=== PATIENT | female | born 1950 | race Hispanic/Latino ===

== ENCOUNTER 2017-02-16 05:33 | Day surgery (SDC) | payer MEDICARE, MEDICAID ==
[~2017-02-16] VITALS: Ht 148.6 cm; Wt 68.7 kg
[2017-02-16] VITALS (11 sets, daily range): BP systolic 117–138; BP diastolic 48–72; PULSE 46–68; RESP 10–23; O2SAT 88–95
[~2017-02-16 05:33] MED LIST: ALEN70TA2 PO; AMLO10TA3 PO; ASPI-973 PO; CALC-78 PO; CHOL100045 PO; DICL100G8 TOPICAL; GLUC100016 PO; MELO-259 PO
[2017-02-16] MEDS ORDERED: Ketamine 10 mg/mL 20 mL Inj ONE (05:34)
[2017-02-16] MEDS ORDERED: fentaNYL-PF 50 mCg/mL 2 mL Inj ONE (05:34)
[2017-02-16] MEDS ORDERED: Dexamethasone 4 mg/mL Inj ONE (05:34)
[2017-02-16] MEDS ORDERED: Propofol 10,000 mCg/mL 20 mL Inj ONE (05:34)
[2017-02-16] MEDS ORDERED: Ondansetron 2 mg/mL 2 mL Inj ONE (05:34)
[2017-02-16] MEDS: Lactated Ringer's 1,000 ML IV SCH ×3 (05:42→08:04)
[2017-02-16] MEDS: CeFAZolin Inj 2 GM in IV Premix 1 EACH IV ONE ×2 (07:26→07:33)
[2017-02-16] MEDS ORDERED: MetoCLOpramide 5 mg/mL 2 mL Inj IVPUSH PRN (07:40)
[2017-02-16] MEDS ORDERED: Lactated Ringer's 500 ML IV PRN (07:40)
[2017-02-16] MEDS ORDERED: Phenylephrine 10,000 mCg/mL Inj IVPUSH PRN (07:40)
[2017-02-16] MEDS ORDERED: EPHEDrine Sulfate 50 mg/mL Inj IVPUSH PRN (07:40)
[2017-02-16] MEDS ORDERED: Lactated Ringer's 1,000 ML IV SCH (07:40)
[2017-02-16] MEDS ORDERED: Ondansetron 2 mg/mL 2 mL Inj IVPUSH PRN (07:40)
[2017-02-16] MEDS ORDERED: Dexamethasone 4 mg/mL Inj IVPUSH PRN (07:40)
[2017-02-16] MEDS ORDERED: fentaNYL-PF 50 mCg/mL 2 mL Inj IVPUSH PRN (07:40)
[2017-02-16] MEDS ORDERED: HYDROmorphone 1 mg/mL Inj IVPUSH PRN (07:40)
--- NOTE | 2017-02-16 07:40 | PCM.HPANE ---
Patient Data Surgeon Admitting Provider: Attending Provider:Barrett Álvarez MD Primary Care Physician:Donna Crenshaw Other Provider:Patricia Casillas Anesthesia Reason for Visit Right Neck Mass Ht/WT & BMI Height (Feet): 4 Height (Inches): 10.50 Weight (Kilograms): 68.7 Body Mass Index 30.00 Allergies Coded Allergies: ALEXY Inhibitors (Verified Adverse Reaction, Severe, COUGH, 02/14/17) Past Anesthesia History Anesthesia History: Denies:: Abnormal Airway, Anesthesia Reactions, Difficult Intubation, Malignant Hyperthermia Diabetes History Hx Diabetes?: No MRSA MRSA: No Medications Blood Thinner: Aspirin Hypertension Medication: Yes (AMLODIPINE) Home Meds Incl Beta Baylee: No Reported Medications Diclofenac Gel (Voltaren Gel)100 Gm Tube1 Applic TOPICAL QID #1 TUBE 02/14/17 Cholecalciferol (Vitamin D3) (Vitamin D)1,000 Unit Capsule1,000 Unit PO DAILY # 1 BOTTLE Ref 0 02/14/17 Meloxicam 7.5 Mg Tablet7.5 Mg PO DAILY 30 Days Ref 0 02/14/17 Glucosamine Sulfate 2Kcl (Glucosamine)1,000 Mg [id number] Mg PO DAILY 02/14/17 Calcium Carbonate/Vitamin D3 (Calcium 500 + Vit D Caplet)1 Each Tablet1 Each PO BID 02/14/17 Aspirin 81 Mg [id number] Mg PO DAILY Ref 0 02/14/17 Amlodipine 10 Mg [id number] Mg PO DAILY Ref 0 02/14/17 Alendronate Sodium (Fosamax)70 Mg [id number] Mg PO WEEKLY 30 Days Ref 0 02/14/17 History History of ENT Problems?: No HEENT History: Denies:: Abnormal Airway Difficult Intubation Hx of Heart Problems?: Yes Cardiovascular History: Positive for:: Chest Pain (02/2013 [facility] WNL) Hypertension Denies:: Heart Murmur Irregular Heartbeat (C/OF PALPITATIONS 2010 HOLTER-RARE PVC'S, FREQ. PAC'S) Other Cardiac History: HX ANEMIA Hx of Respiratory Problem?: Yes Respiratory History: Denies:: Use of C-PAP Machine (SNORES) Hx Neurologic Problems?: No Hx of GI Problems?: Yes Gastrointestinal History: Positive for:: Gall Bladder Disease (S/P HUI) Hx of Problems?: No Female Hx: Denies:: Currently (S/P BTL HX MISSED AB X2) Skin History: Denies:: History Skin Disorders? Pressure Ulcers Hx Musculoskeletal Problems?: Yes Musculoskeletal History: Denies:: Osteoarthritis (OSTEOPOROSIS) Hx of Psycho/Social Problems?: No Hx Surgeries?: Yes (HUI,BTL,GUICHO/BSO) Hx Any Other Health Problems?: Yes Other History: Positive for:: Hospitalization (CHILDBIRTH) Denies:: Cancer Endocrine Disease Thyroid Disease Hx Diabetes: No Hx Alcohol Use: Yes (OCCAS)Have You Smoked inLast 12 mo: No Stop/Bang Treated for Sleep Apnea?: Yes Do You Have a CPAP Machine?: Yes S-Snoring: Do You Snore Loudly: Yes T-Tired: feel tired, fatigued: No O-Obsered: Observed not breath: No P-Blood Pressure: treated: Yes B- Body Mass Index > 35 kg/m2: No A- Age over 50: Yes N- Neck Large Circumference: No G- Gender Male: No ILAN Total Score: 3 Risk Assessment Category Category 1A: Patient has history of documented sleep apnea, and HAS NOT received any narcotic, sedative or anesthesia administration during this stay. Category 1B: Patient has history of documented sleep apnea, and HAS received any narcotic , sedative or anesthesia administration during this stay Category 2: Patient has SUSPECTED Obstructive Sleep Apnea, and HAS received any narcotic , sedative or anesthesia administration during this stay. Category 3: Patient has SUSPECTED Obstructive Sleep Apnea and HAS NOT received narcotic, sedative or anesthesia administration during this stay. Category 4: Outpatient in Procedural Areas with known sleep apnea or who screen positive for High Risk via the STOP/BANG questionnaire. Exam Exam Vital Signs Vital Signs Date Time Temp Pulse Resp B/P Pulse Ox O2 Delivery O2 Flow Rate FiO2 02/16/17 06:18 36.4 68 18 130/58 94 Room Air General Appearance: Alert, Oriented X3, Cooperative, No Acute Distress HEENT/AIRWAY: MP 2 Lungs: Clear to Auscultation, Normal Air Movement Heart: Exam Unremarkable, Regular Rate/Rhythm, No Murmurs/Rubs/Gallops Meds/Labs/Diagnostics Admission Meds Current Medications Cefazolin Sodium/ Dextrose 2 gm/ Premix 50 ml @ 100 mls/hr ONCE ONCE IV Last administered on 02/16/17t 07:33; Start 02/16/17 at 06:00; Stop 02/16/17 at 06:29 ; Status DC Lactated Ringer's (Lr) 1,000 ml @ 120 mls/hr Q8H20M IV Last administered on 07:33; Start 02/16/17 at 05:00; Stop 02/16/17 at 13:19 Plan Impression Patient chart reviewed, patient interviewed and anesthestic plan with risks, benefits, and alternatives discussed, and informed consent obtained. NPO Status: 930pm ASA Physical Status: ASA1 Normal Healthy Anesthetic Plan: GA Bene/Risks/Altern/Consents: Yes HP Complete Prior to Induction: Yes Michael Ragland MD Feb 16, 2017 07:40
[2017-02-16] MEDS ORDERED: Bupivacaine 0.5%/EPI 50 mL Inj INFILTRATE ONE (07:47)
[2017-02-16] MEDS ORDERED: HYDROcodone-APAP 5-325 mg Tablet PO PRN (08:15)
--- NOTE | 2017-02-16 08:17 | PCM.DISURG ---
Surgical Discharge Instruction Date of Service Feb 16, 2017 Dates of Hospitalization Date of Hospital Admission Providers Admitting Physician: Primary Care Physician: Donna Crenshaw Attending Physician: Barrett Álvarez MD Discharge Diagnosis Discharge Diagnosis Right neck lipoma Diet Discharge Diet: No restrictions Activity Discharge Activity-General: No restrictions Dressing and Incisional Care Dressing Instructions: Dermabond will peel off gradually Hygiene: May shower Follow Up Plan Follow Up Plan In the general surgery [place] postoperative clinic in 2 weeks Call your provider for: Fever (over 101.5), Discharge @ incision, pus discharge Barrett Álvarez MD Feb 16, 2017 08:17
--- NOTE | 2017-02-16 08:21 | PCM.SURGOP ---
Surgical Operative Report Date of Service: Feb 16, 2017 Pre Operative Diagnosis Right neck mass Post Operative Diagnosis Right neck lipoma Procedure: Excision of right neck lipoma, 2.0 cm Surgeon and Hammer Driver: Surgeon: Barrett Álvarez MD Assistants: None Indication for Procedure 67-year-old woman who has had a right neck mass for approximately 10 years. It has gotten slightly bigger in size over time. An ultrasound was performed which demonstrated a 1.8 x 1.2 x 0.4 cm hypoechoic mass, and the differential diagnosis included both benign and malignant etiologies. After discussion of risks and benefits, she agreed to proceed with excision in the operating room. Findings: The mass was grossly consistent with a lipoma, measuring 2.0 x 1.0 x 0.7 cm. Procedure Details After smooth induction of general anesthesia with an LMA, she was placed in the supine position with the head turned to the left, and was prepped and draped in wide sterile fashion. A procedural pause was performed according to the SCOAP checklist, and all were found to be in agreement. A vertical incision was made over the palpable mass. Skin flaps were raised anteriorly and posteriorly. The mass was immediately apparent, which grossly looked like a lipoma. It was dissected free from the surrounding soft tissues. On the anterior aspect, there was a small subcutaneous nerve which was divided with a Hemoclip. The mass was dissected free from the surrounding tissues. During the posterior dissection, a small amount of posterior skin was buttonholed. A new skin incision was made around the buttonhole to correct that defect. Ex vivo, the mass measured 2.0 x 1.0 x 0.7 cm. It was sent for permanent pathology. Hemostasis was adequate. The skin incision was closed with interrupted deep dermal 3-0 Vicryl sutures, and a running 4-0 Monocryl subcuticular stitch. Dermabond was applied to the skin as a dressing. At the end of the case all needle and sponge counts were correct 2. The patient was awakened from anesthesia without difficulty, and taken to the recovery room in satisfactory condition, having tolerated the procedure well. Complications There were no periprocedural complications identified. Surgical Specimen Removed: Yes Specimen sent to Pathology: Yes Surgical Specimen description: Right neck mass Anesthetic Plan: GA Grafts, Implants: None Output, Estimated Blood Loss: 5 Blood Administration during millan: No Drains: None Catheters: None copies to: Donna Crenshaw Joshua D MD Feb 16, 2017 08:21
--- NOTE | 2017-02-16 08:49 | PCM.ANEP1 ---
Post Anesthesia Phase 1 PACU Phase 1 Assessment Date of Service: Feb 16, 2017 Vital Signs Vital Signs Date Time Temp Pulse Resp B/P Pulse Ox O2 Delivery O2 Flow Rate FiO2 02/16/17 08:46 53 23 125/64 93 Nasal Cannula 2 02/16/17 08:40 46 17 132/72 94 Nasal Cannula 2 02/16/17 08:31 36.3 63 23 132/60 92 Nasal Cannula 2 02/16/17 08:25 59 13 119/48 95 Nasal Cannula 3 02/16/17 08:20 60 14 117/60 94 Nasal Cannula 3 02/16/17 08:15 59 10 122/58 93 Nasal Cannula 3 02/16/17 08:12 36.3 64 10 122/58 92 Nasal Cannula 3 02/16/17 06:18 36.4 68 18 130/58 94 Room Air Anesthetic Administered: GA Level of Alertness: Awake, talking GALVAN's with Equal Strength: Yes Pain: No Nausea or Vomiting: No Oxygen Delivery: Nasal Cannula Lungs: Clear to Auscultation, Normal Air Movement Dermatome Level: Full Sensation Michael Ragland MD Feb 16, 2017 08:49
--- NOTE | 2017-02-16 08:49 | PCM.ANEP2 ---
Post Anesthesia Evaluation ASA/CMS Post Anesthesia VS in Patient's Normal Range?: Yes Resp Stable; Airway Patent?: Yes CV Function & Hydration Stable: Yes Mental Status Recovered?: Yes Pain control Satisfactory?: Yes N/V Control Satisfactory?: Yes Michael Ragland MD Feb 16, 2017 08:49
--- NOTE | 2017-02-19 10:42 | PATH ---
SURGICAL PATHOLOGY Attending Physician:Kwabena Marino CASE STATUS: Signed Out PATIENT NAME: ANTHONY MAYERS PID: [id number] : 1950 DATE COLLECTED:02/16/2017 17:29 SPECIMEN: Mass, NOS CLINICAL HISTORY: RIGHT NECK MASS 1). RIGHT NECK MASS FINAL DIAGNOSIS: 1.RIGHT NECK MASS: LIPOMA. ICD10 CODE D17.0 GROSS DESCRIPTION: The specimen is received in one formalin filled container labeled with the patient's name, sublabeled "right neck mass" and consists of a fragmented and yellow-narayanan portion of soft tissue which measures 2.0 x 0.9 x 0.8 CM. The specimen is inked blue. The specimen is sectioned into multiple pieces and entirely submitted in one cassette. 02/16/2017 [facility] MICRO DESCRIPTION: See diagnosis. ICD-9 CODES: CPT CODES: 15541 Electronically Signed Out Juancarlos Lozano MD [facility] Pathology [facility] [address], [place] [address] Technical component performed at [facility], [facility] [address], [place], [address]
== END 2017-02-16 23:59 | disposition home or self-care (01) ==
LOC: SAS 05:33
PROVIDERS: ATTEND Student in an Organized Health Care Education/Training Program
DX: D17.0 Benign lipomatous neoplasm of skin and subcutaneous tissue of head, face and neck (principal); M54.2 Cervicalgia; I10 Essential (primary) hypertension; E78.5 Hyperlipidemia, unspecified; M81.0 Age-related osteoporosis without current pathological fracture; Z90.710 Acquired absence of both cervix and uterus; Z79.82 Long term (current) use of aspirin; R22.1 Localized swelling, mass and lump, neck
CPT/HCPCS: 11422; 88304; 94640; J0690; J1100; J2250; J2405; J3010; J7120